=== PATIENT | female | born 1960 | race Caucasian/White ===

== ENCOUNTER 2017-12-23 05:29 | Emergency (ER) ==
[2017-12-23 05:44] VITALS: BP 139/94; TEMP 103.3; BMI 37.9
[2017-12-23] MEDS ORDERED: DECADRON 4 MG/ML SDV IM STA (05:45)
[2017-12-23] MEDS ORDERED: TYLENOL PO STA (05:45)
--- NOTE | 2017-12-23 05:51 | ED.PDOC ---
General ED Provider: Dr. RIO SHAW Chief Complaint: Cough Stated Complaint: pATIENT IS TRAVELLING FROM [place], SHE FELL SICK, FEVER, COUGHING SOME,. HURTING ALL OVER. CAME FOR THE EVALUATION Time Seen by Physician: 05:49 Mode of Arrival: Walk-In Information Source: Patient Nursing and Triage Documentation Reviewed and Agree: Yes Reviewed sepsis parameters & appropriate labs ordered?: Yes System Inflammatory Response Syndrome: Temp 101F or Greater Sepsis Protocol: For patient's 13 years and over: Temp is 96.8 and below OR 101 and greater Pulse >90 BPM Resp >20/minute Acutely Altered Mental Status Are patient's symptoms suggestive of a new infection, such as: -Pneumonia -Skin, Soft Tissue -Endocarditis -UTI -Bone, Joint Infection -Implantable Device -Acute Abdominal Infection -Wound Infection -Meningitis -Blood Stream Catheter Infection -Unknown Respiratory Complaint Exam - Respiratory Complaint/Exam Symptoms Are: Still present Timing: Constant Initial Severity: Mild Current Severity: Mild Location: Chest Character: Reports: Non-productive cough Aggravating: Reports: Exertion, URI Alleviating: Reports: None Associated Signs and Symptoms: Reports: URI, Nasal congestion, Vomiting. Denies : Rapid breathing, Dyspnea, Fever, Chills, Chest pain, Pleuritic chest pain, Wheezing, Hemoptysis, Dizziness, Calf pain, Calf swelling, Edema, Hoarseness, Sinus discomfort, Sore throat, Weight loss, Decreased oral intake, Increased thirst, Increased appetite, Increased urination History of Healthcare-Acquired Pneumonia: No Related Surgical History: Reports: None Pulmonary Embolism Risk Factors: None Cardiac Risk Factors: Reports: None Pseudomonas Risk Factors: Reports: None Tuberculosis Risk Factors: Reports: None Status Asthmaticus Risk Factors: Reports: None Home Oxygen Use: No Recent Stress Test: No Recent Echo/LV Function: No Current Antibiotic Use: No Current Asthma Medication Use: No Respiratory Distress: None Inadequate Respiratory Effort: No Dysphagia Present: No Stridor Present: No JVD Present: No Retractions: Not Present Diminished Breath Sounds: No Sinus Tenderness: None Grunting Respirations: No Kussmaul Respirations: No Differential Diagnoses: Pneumonia, Influenza Review of Systems - Review Of Systems Constitutional: Reports: Fever, Malaise Eyes: Reports: No symptoms Ears, Nose, Mouth, Throat: Reports: No symptoms Respiratory: Reports: Cough Cardiac: Reports: No symptoms GI: Reports: No symptoms : Reports: No symptoms Musculoskeletal: Reports: No symptoms Skin: Reports: No symptoms Neurological: Reports: No symptoms Endocrine: Reports: No symptoms Hematologic/Lymphatic: Reports: No symptoms All Other Systems: Reviewed and Negative Past Medical History - Past Medical History Previously Healthy: Yes Endocrine: Reports: None Cardiovascular: Reports: None Respiratory: Reports: None Hematological: Reports: None Gastrointestinal: Reports: None Genitourinary: Reports: None Neuro/Psych: Reports: None Musculoskeletal: Reports: Other (ra) Cancer: Reports: None Last Menstrual Period: 1991 - Surgical History General Surgical History: Reports: Other (RT EYE SURGERY 12/16/17) - Family History Family History: Reports: None - Social History Smoking Status: Never smoker Hx Substance Use: No Alcohol Screening: None - Immunizations Tetanus Shot up to Date: Yes Physical Exam - Physical Exam Appearance: Ill-appearing, Obese Eyes: KEVIN (RT EYE LID IS RED ECCHYMOSIS) ENT: Ears normal, Nose normal, Oropharynx normal Respiratory: Airway patent, Breath sounds clear, Breath sounds equal, Respirations nonlabored Cardiovascular: RRR, Pulses normal, No rub, No murmur GI/: Soft, Nontender, No masses, Bowel sounds normal, No Organomegaly Musculoskeletal: Normal strength, ROM intact, No edema, No calf tenderness Skin: Warm, Dry, Normal color Neurological: Sensation intact, Motor intact, Reflexes intact, Cranial nerves intact, Alert, Oriented Psychiatric: Affect appropriate, Mood appropriate Interpretation - Radiology Interpretation Radiology Interpretation By: Radiologist Radiology Results: Negative Exam Interpreted: CXR Critical Care Note - Critical Care Note Total Time (mins): 20 Course - Course Hematology/Chemistry: 12/23/17 06:00 12/23/17 06:00 Orders, Labs, Meds: Lab Review 12/23/17 12/23/17 12/23/17 06:00 06:00 06:00 WBC 6.30 RBC 3.87 L Hgb 12.0 Hct 34.7 L MCV 89.7 MCH 31.0 MCHC 34.6 RDW Coeff of Devin 13.9 Plt Count 161 Immature Gran % (Auto) 0.3 Neut % (Auto) 84.5 Lymph % (Auto) 6.0 L [place] % (Auto) 8.7 Eos % (Auto) 0.3 Baso % (Auto) 0.2 Immature Gran # (Auto) 0.0 Neut # 5.3 Lymph # 0.4 L [place] # 0.6 Eos # 0.0 Baso # 0.0 Sodium 141 Potassium 3.5 Chloride 107 Carbon Dioxide 26 Anion Gap 11.5 BUN 17 Creatinine 0.83 Estimated GFR (MDRD) 70.00 BUN/Creatinine Ratio 20.48 Glucose 135 H Lactic Acid 9.3 Calcium 8.6 Total Bilirubin 0.6 AST 26 ALT 42 Alkaline Phosphatase 69 Total Protein 6.2 L Albumin 3.6 Globulin 2.6 Albumin/Globulin Ratio 1.38 Influenza A (Rapid) Influenza B (Rapid) 12/23/17 06:00 WBC RBC Hgb Hct MCV MCH MCHC RDW Coeff of Devin Plt Count Immature Gran % (Auto) Neut % (Auto) Lymph % (Auto) [place] % (Auto) Eos % (Auto) Baso % (Auto) Immature Gran # (Auto) Neut # Lymph # [place] # Eos # Baso # Sodium Potassium Chloride Carbon Dioxide Anion Gap BUN Creatinine Estimated GFR (MDRD) BUN/Creatinine Ratio Glucose Lactic Acid Calcium Total Bilirubin AST ALT Alkaline Phosphatase Total Protein Albumin Globulin Albumin/Globulin Ratio Influenza A (Rapid) Negative by naat Influenza B (Rapid) Negative by naat Orders Category Date Time Status BLOOD CULTURE Stat LAB 12/23/17 06:00 Received CBC W/ AUTO DIFF Stat LAB 12/23/17 06:00 Completed COMPREHENSIVE METABOLIC PANEL Stat LAB 12/23/17 06:00 Completed FLU A/B MOLECULAR Stat LAB 12/23/17 06:00 Completed LACTIC ACID Stat LAB 12/23/17 06:00 Completed MOLECULAR GROUP A STREP Stat LAB 12/23/17 06:29 Uncollected PROCALCITONIN Stat LAB 12/23/17 06:00 Received Acetaminophen [Tylenol] MEDS 12/23/17 05:45 Discontinued 500 mg PO ONCE STA Dexamethasone 4 mg/ml Inj [Decadron 4 mg/ml Sdv] MEDS 12/23/17 05:45 Discontinued 4 mg IM ONCE STA CHEST, 2 VIEWS PA & LAT Stat RADS 12/23/17 05:45 Completed Medications Discontinued Medications Generic Name Dose Route Start Last Admin Trade Name Freq PRN Reason Stop Dose Admin Acetaminophen 500 mg 12/23/17 05:45 12/23/17 05:56 Tylenol PO 12/23/17 05:46 500 mg ONCE STA Administration Dexamethasone Sodium Phosphate 4 mg 12/23/17 05:45 12/23/17 05:56 Decadron 4 Mg/Ml Sdv IM 12/23/17 05:46 4 mg ONCE STA Administration Vital Signs: Temp Pulse Resp BP Pulse Ox 12/23/17 05:33 103.3 F H 99 H 20 139/94 H 95 Departure - Departure Time of Disposition: 06:31 Disposition: HOME SELF-CARE Discharge Problem: Flu-like symptoms Instructions: Influenza (ED) Condition: Stable Pt referred to PMD for follow-up: Yes IPMP verified?: No Additional Instructions: Increase Hydration Take medication with food. Allergies/Adverse Reactions: Allergies adhesive Adverse Reaction (Verified 12/23/17 05:39) Home Medications: Ambulatory Orders Folic Acid 0.4 mg PO DAILY 12/23/17 Loratadine [Claritin] 10 mg PO DAILY 12/23/17 Triamterene/Hydrochlorothiazid [Dyazide] 10 mg pe PO DIRECTED 12/23/17 Disposition Discussed With: Patient, Family
--- NOTE | 2017-12-23 06:23 | DI ---
EXAM: Chest two views HISTORY: Coughing COMPARISON: None TECHNIQUE: Two views of the chest were performed FINDINGS: The lungs are clear. There is no pleural effusion or pneumothorax. The heart is normal i n size. The mediastinal contour is normal. There are no acute abnormalities of the bones. IMPRESSION: No acute cardiopulmonary process.
== END 2017-12-23 06:38 | disposition home or self-care (01) ==
LOC: ED 05:29
DX: R05 Cough (principal); R50.9 Fever, unspecified; R52 Pain, unspecified; R11.10 Vomiting, unspecified
CPT/HCPCS: 36415; 80053; 83605; 84145; 85025; 87040; 87502; 96372; 99283